=== PATIENT | female | born 1980 | race Caucasian/White ===

== ENCOUNTER 2016-07-05 05:50 | Inpatient (IN) | payer OTHER ==
[2016-07-05] MEDS ORDERED: ELECTROLYTE-148 SOLN 1,000 ML IV ONE ×2 (06:10→10:05)
[2016-07-05] MEDS ORDERED: CITRIC ACID/SODIUM CITRATE 30 ML UNIT-DOSE CUP PO ONE (06:30)
[2016-07-05 06:33] VITALS: BMI 33.2
[2016-07-05] MEDS ORDERED: oxyCODONE HCL 5 MG TABLET PO PRN ×2 (07:54)
[2016-07-05] MEDS ORDERED: METHYLERGONOVINE MALEATE 0.2 MG/1 ML AMP IM PRN (07:54)
[2016-07-05] MEDS ORDERED: morphine SULFATE/Preservative Free 0.5 MG/ML (1cc Syringe) EP ONE (08:00)
[2016-07-05] MEDS ORDERED: IBUPROFEN 600 MG TABLET (FP) PO PRN (08:00)
[2016-07-05] MEDS ORDERED: ONDANSETRON 4 MG/2 ML VIAL IVPB PRN (08:00)
--- NOTE | 2016-07-05 08:02 | HP ---
Past Medical History - Primary Care Physician PCP:: Leslee Patiño - Admission Chief Complaint: Previous Section. Multiparity. Voluntary Sterilization History Source: Patient - Past Medical History ...: 3 ...Para: 2 ...Term: 2 ...: 0 ...Spon : 0 ...Induced : 0 ...Multiple Gestation: 0 ...LMP: 10/14/15 ... Weeks Gestation by Dates: 37.6 ...EDC by Dates: 07/20/16 ...EDC by Sono: 07/11/16 - Past Surgical History Past Surgical History: Yes: Hx Myomectomy: No Hx Transabdominal Cerclage: No - Smoking History Smoking history: Never smoked - Alcohol/Substance Use Hx Alcohol Use: No - Social History Usual Living Arrangement: Yes: With Spouse History of Recent Travel: No Home Medications - Allergies Allergies/Adverse Reactions: Allergies Allergy/AdvReac Type Severity Reaction Status Date / Time No Known Allergies Allergy Verified 07/05/16 06:11 - Home Medications Home Medications: Ambulatory Orders NK [No Known Home Medication] 07/05/16 Review of Systems - Review of Systems Constitutional: reports: No Symptoms Eyes: reports: No Symptoms HENT: reports: No Symptoms Neck: reports: No Symptoms Cardiovascular: reports: No Symptoms Respiratory: reports: No Symptoms Gastrointestinal: reports: No Symptoms Genitourinary: reports: No Symptoms Breasts: reports: No Symptoms Reported Musculoskeletal: reports: No Symptoms Integumentary: reports: No Symptoms Neurological: reports: No Symptoms Endocrine: reports: No Symptoms Hematology/Lymphatic: reports: No Symptoms Psychiatric: reports: No Symptoms Physical Exam - Maternity Vital Signs: Vital Signs Temperature 97.8 F 07/05/16 06:37 Pulse Rate 73 07/05/16 06:37 Respiratory Rate 20 07/05/16 06:37 Blood Pressure 120/65 07/05/16 06:37 O2 Sat by Pulse Oximetry (%) Constitutional: Yes: Well Nourished, No Distress Neck: Yes: WNL, Supple Cardiovascular: Yes: WNL, Regular Rate and Rhythm Lungs: Clear to auscultation Breast(s): Yes: WNL - Abdominal Exam/OB Fundal Height: 40 Number of Fetuses: Single Presentation: Vertex Contractions: No Monitor Mode: External Category: I Accelerations: Non-Uniform Decelerations: None - Vaginal Exam/OB Dilatation (cm): closed Effacement (%): long Amniotic Membrane Status: Intact Presentation: Vertex/Position Station: -1 - Physical Exam Musculoskeletal: Yes: WNL Extremities: Yes: WNL Edema: No Integumentary: Yes: WNL ...Motor Strength: WNL Psychiatric: Yes: WNL, Alert, Oriented Hemorrhage Risk Assessment - Risk Factors Medium Risk Factors: Yes: Prior , uterine surgery,or multiple laparotomies Risk Score: 1 Risk Level: Medium Risk Problem List - Problems (1) Previous delivery affecting , antepartum Code(s): O34.219 - MATERNAL CARE FOR UNSP TYPE SCAR FROM PREVIOUS DEL (2) Sterilization Code(s): Z30.2 - ENCOUNTER FOR STERILIZATION Assessment/Plan IUP at 39 weeks Voluntary Sterilization previous x 2 weeks Plan Repeat CS Bilateral Salpingectomy
--- NOTE | 2016-07-05 09:29 | OP ---
Operative Note - Note: Operative Date: 07/05/16 Pre-Operative Diagnosis: Previous CS. Voluntary Sterilization Operation: Repeat CS Findings: Live female Nuchal Cord x 1 Body cord X 1 Post-Operative Diagnosis: Same as Pre-op Surgeon: Leslee Patiño College Physics Instructor: Anita Watts Anesthesiologist/ACADEMIC VICE PRESIDENT: Stephen Martinez Anesthesia: Spinal Estimated Blood Loss (mls): 700 Operative Report Dictated: Yes
[2016-07-05 09:40] LABS: ARTERIAL BLD GAS O2 SATURATION 36.8 % (90-98.9); ARTERIAL BLOOD GAS BASE EXCESS -3.6 meq/l (-2-2); ARTERIAL BLOOD GAS HCO3 22.7 meq/L (22-26)
--- NOTE | 2016-07-05 09:40 | OP ---
DATE OF OPERATION: 07/05/2016 PREOPERATIVE DIAGNOSIS: Previous section, voluntary sterilization. OPERATION: Repeat section and bilateral salpingectomy. POSTOPERATIVE DIAGNOSIS: Previous section, voluntary sterilization, live female infant nuchal cord x1, body cord x1. SURGEON: Leslee Patiño MD KILN REPAIRER: LIMA Ely ANESTHESIA: Spinal. ANESTHESIOLOGIST: Stephen Martinez MD ESTIMATED BLOOD LOSS: 700 mL. WOUND CLASSIFICATION: Clean, contaminated. DESCRIPTION OF PROCEDURE: The patient was taken to the operating room and placed in supine position, prepped and draped in usual sterile fashion. Time-out was called in accordance with hospital regulation. Scalpel was then used to make a Pfannenstiel skin incision through the patient's previous scar. Cautery was then used to go through layers of the abdominal wall to the level of the fascia. The fascia was cut in the midline, and the fascia was then opened in a smiling fashion. Kochers were then used to bluntly and sharply dissect the rectus muscles off the fascia and muscles split in the midline. Peritoneal cavity was then entered and carried up and down where a bladder retractor was then placed. Vesicouterine reflection was then entered. The bladder was bluntly dissected out of the operative field. Scalpel was then used to make a low transverse uterine incision. Incision was carried upward using bandage scissors. A live female with light meconium was noted and delivered in OT position. Shoulders were delivered without difficulty. Nuchal cord x1 and body cord was reduced. Cord was clamped and cut. Cord pH sampling was sent. Cord blood obtained. obtained. The infant was handed to the nurse. Placenta was manually extracted from the uterus. Uterus was exteriorized and cleaned with clean laparotomy pads. A massive band adhesion was then seen. LigaSure was then used to coagulate and cut the band. Uterus was then cleaned with clean laparotomy pads and uterine incision then closed using 0 Biosyn suture first layer continuous and locking, second layer imbricating the first layer. Hemostasis achieved. Tubes were bilaterally grasped with Babcocks, and LigaSure was used to coagulate and cut the tubes bilaterally away from the uterus. Hemostasis was achieved. Sjvawy-[id number] sutures were then used to stop the bleeding on the fundus. Interceed was placed over the fundus. Uterus interiorized. Abdominal cavity cleaned with clean laparotomy pads. Peritoneum closed using 0 Biosyn suture. Fascia was then closed using 0 Vicryl suture in 2 parts. Then 0 Biosyn was then used on the subcutaneous. The skin was then closed using 4-0 Biosyn in subcuticular fashion. The wound was washed and dressed. The patient tolerated the procedure well and was taken to the recovery room in stable condition. Estimated blood loss was 700 mL. LESLEE PATIÑO M.D. [id number]
[2016-07-05 09:45] LABS: LPM/O2% 21%; PT. ON O2? NO; TYPE OF O2 ROOM AIR
[2016-07-05 09:46] LABS: ARTERIAL BLOOD GAS PO2 21.7 mmHg (80-100); VENOUS PH 7.35 (7.32-7.42)
[2016-07-05 09:47] LABS: VENOUS BLOOD GAS HCO3 23.1 meq/L (19-25)
[2016-07-05] MEDS ORDERED: IBUPROFEN 800 MG/8 ML IJ IVPB PRN (10:04)
[2016-07-06] MEDS: IBUPROFEN 600 MG TABLET (FP) PO PRN ×2 (04:35→13:08)
[2016-07-06] MEDS: SIMETHICONE 80 MG TAB.CHEW (FP) PO PRN ×2 (04:35→13:08)
[2016-07-06] MEDS: ACETAMINOPHEN 325 MG TABLET (FP) PO PRN ×2 (04:36→13:07)
[2016-07-06] MEDS ORDERED: BISACODYL 10 MG SUPP.RECT RC PRN (07:54)
--- NOTE | 2016-07-06 07:57 | PN ---
Progress Note (short form) - Note Progress Note: Post op day#1.S/P C section under spinal with duramorph uneventful.Patient stable and has little pain for which she is on medication.No any anesthesia related problem.Patient DC from the anesthesia care.
[2016-07-06 08:37] LABS: BASOPHIL 0.1 % (0-2.0); MCH 29.2 pg (25.7-33.7); MCHC 33.1 g/dl (32.0-36.0); MEAN CELL VOLUME 88.2 fl (80-96); MEAN PLT VOLUME 8.4 fl (7.5-11.1); NEUTROPHILS 86.2 % (42.8-82.8); PLATELET COUNT 219 K/MM3 (134-434); RDW 13.3 % (11.6-15.6)
--- NOTE | 2016-07-06 12:28 | SURG ---
Surgery Polisher And Buffer Note Polisher And Buffer: Anita Watts PA-C Date of Service: 07/05/16 Diagnosis: Previous CS Procedure: Repeat CS I was present for the entirety of the operative procedure. For further detail, please refer to operative report. Visit type - Case Type Case Type: Scheduled Admission
[2016-07-06] MEDS: D5W-LR W/ 20 UNITS OXYTOCIN 1,000 ML IV SCH (13:11)
--- NOTE | 2016-07-06 20:17 | PN ---
Post Progress Note - Subjective Subjective: 36 yo Para 3 status post , seen and evaluated. Doing well. Post Day: 1 Type of Delivery: Repeat C/S Vital Signs: Vital Signs Temperature 98.2 F 07/06/16 10:00 Pulse Rate 80 07/06/16 10:00 Respiratory Rate 20 07/06/16 10:00 Blood Pressure 114/70 07/06/16 10:00 O2 Sat by Pulse Oximetry (%) 100 07/05/16 10:30 Breast Exam: Yes: Soft Uterus: Yes: Fundus Firm Incision: Yes: Dressing dry and intact Abdomen/GI: Yes: Abdomen soft, Tolerating PO Lochia: Yes: Rubra Lochia, amount: Small Extremities: Yes: Calves non-tender Perineum: Yes: Intact - Labs Labs: CBC WBC 14.0 K/mm3 (4.0-10.0) H D 07/06/16 08:00 RBC 3.57 M/mm3 (3.60-5.2) L 07/06/16 08:00 Hgb 10.4 GM/dL (10.7-15.3) L 07/06/16 08:00 Hct 31.5 % (32.4-45.2) L 07/06/16 08:00 MCV 88.2 fl (80-96) 07/06/16 08:00 MCHC 33.1 g/dl (32.0-36.0) 07/06/16 08:00 RDW 13.3 % (11.6-15.6) 07/06/16 08:00 Plt Count 219 K/MM3 (134-434) 07/06/16 08:00 MPV 8.4 fl (7.5-11.1) 07/06/16 08:00 Neutrophils % 86.2 % (42.8-82.8) H 07/06/16 08:00 Lymphocytes % 7.3 % (8-40) L D 07/06/16 08:00 Monocytes % 6.4 % (3.8-10.2) 07/06/16 08:00 Eosinophils % 0.0 % (0-4.5) D 07/06/16 08:00 Basophils % 0.1 % (0-2.0) 07/06/16 08:00 Problem List - Problems (1) Status post repeat low transverse section Code(s): Z98.891 - HISTORY OF UTERINE SCAR FROM PREVIOUS SURGERY Assessment/Plan Status post repeat Ambulation Analgesia PRN pain Continue routine Post op care
[2016-07-07] MEDS: SIMETHICONE 80 MG TAB.CHEW (FP) PO PRN ×2 (07:36→11:46)
[2016-07-07] MEDS: IBUPROFEN 600 MG TABLET (FP) PO PRN (11:46)
[2016-07-07] MEDS: ACETAMINOPHEN 325 MG TABLET (FP) PO PRN (11:47)
[2016-07-08] MEDS: ACETAMINOPHEN 325 MG TABLET (FP) PO PRN (07:22)
[2016-07-08 08:51] LABS: BASOPHIL 0.3 % (0-2.0); EOSINOPHIL 0.8 % (0-4.5); MCH 29.3 pg (25.7-33.7); MCHC 33.4 g/dl (32.0-36.0); MEAN CELL VOLUME 87.8 fl (80-96); MEAN PLT VOLUME 8.3 fl (7.5-11.1); NEUTROPHILS 79.8 % (42.8-82.8); PLATELET COUNT 266 K/MM3 (134-434); RDW 13.7 % (11.6-15.6); WHITE BLOOD COUNT 11.3 K/mm3 (4.0-10.0)
[2016-07-08 09:35] VITALS: BP 110/67; PULSE 84; TEMP 98.4
[2016-07-08] MEDS: D5W-LR W/ 20 UNITS OXYTOCIN 1,000 ML IV SCH (09:53)
--- NOTE | 2016-07-08 10:38 | PN ---
Progress Note (SOAP) - Subjective Chief Complaint: Pt doing well desires to go home - Current Medications Current Medications: Active Medications Acetaminophen (Tylenol -) 650 mg PO Q4H PRN PRN Reason: FEVER OR PAIN Last Admin: 07/08/16 07:22 Dose: 650 mg Bisacodyl (Dulcolax Suppository -) 10 mg RC PRN PRN PRN Reason: CONSTIPATION Last Admin: 07/08/16 07:22 Dose: 10 mg Diphenhydramine HCl (Benadryl Injection -) 25 mg IVPUSH Q4H PRN PRN Reason: Pruritis Dextrose/Lactated Ringer's (Pitocin 20 Units In D5-Lr -) 1,000 mls @ 125 mls/ hr IV ASDIR ROGELIO Last Admin: 07/08/16 09:53 Dose: Not Given Ibuprofen (Motrin -) 600 mg PO Q4H PRN PRN Reason: PAIN Last Admin: 07/08/16 07:23 Dose: 600 mg Ibuprofen (Caldolor Injection -) 600 mg IVPB Q8H PRN PRN Reason: FEVER Methylergonovine Maleate (Methergine Injection -) 0.2 mg IM Q4H PRN PRN Reason: Excessive Bleeding (L&D) Simethicone (Mylicon -) 80 mg PO Q4H PRN PRN Reason: GAS Last Admin: 07/07/16 11:46 Dose: 80 mg - Objective Vital Signs: Vital Signs Temperature 98.4 F 07/08/16 09:34 Pulse Rate 84 07/08/16 09:34 Respiratory Rate 18 07/08/16 09:34 Blood Pressure 110/67 07/08/16 09:34 O2 Sat by Pulse Oximetry (%) 100 07/05/16 10:30 Constitutional: Yes: Well Nourished, No Distress ....Post : Yes: Uterus firm, Uterus non-tender Breast(s): Yes: WNL Musculoskeletal: Yes: WNL Extremities: Yes: WNL Edema: No Wound/Incision: Yes: Clean/Dry, Well Approximated Neurological: Yes: WNL, Alert, Oriented Labs Lab Results: CBC, BMP 07/08/16 08:15 Problem List - Problems (1) Previous delivery affecting , antepartum Code(s): O34.219 - MATERNAL CARE FOR UNSP TYPE SCAR FROM PREVIOUS DEL (2) Sterilization Code(s): Z30.2 - ENCOUNTER FOR STERILIZATION Assessment/Plan Voluntary Sterilization previous x3 POD3 doing well Plan DC home
--- NOTE | 2016-07-08 10:38 | PN ---
Progress Note (SOAP) - Subjective Chief Complaint: Pt doing well - Current Medications Current Medications: Active Medications Acetaminophen (Tylenol -) 650 mg PO Q4H PRN PRN Reason: FEVER OR PAIN Last Admin: 07/08/16 07:22 Dose: 650 mg Bisacodyl (Dulcolax Suppository -) 10 mg RC PRN PRN PRN Reason: CONSTIPATION Last Admin: 07/08/16 07:22 Dose: 10 mg Diphenhydramine HCl (Benadryl Injection -) 25 mg IVPUSH Q4H PRN PRN Reason: Pruritis Dextrose/Lactated Ringer's (Pitocin 20 Units In D5-Lr -) 1,000 mls @ 125 mls/ hr IV ASDIR ROGELIO Last Admin: 07/08/16 09:53 Dose: Not Given Ibuprofen (Motrin -) 600 mg PO Q4H PRN PRN Reason: PAIN Last Admin: 07/08/16 07:23 Dose: 600 mg Ibuprofen (Caldolor Injection -) 600 mg IVPB Q8H PRN PRN Reason: FEVER Methylergonovine Maleate (Methergine Injection -) 0.2 mg IM Q4H PRN PRN Reason: Excessive Bleeding (L&D) Simethicone (Mylicon -) 80 mg PO Q4H PRN PRN Reason: GAS Last Admin: 07/07/16 11:46 Dose: 80 mg - Objective Vital Signs: Vital Signs Temperature 98.4 F 07/08/16 09:34 Pulse Rate 84 07/08/16 09:34 Respiratory Rate 18 07/08/16 09:34 Blood Pressure 110/67 07/08/16 09:34 O2 Sat by Pulse Oximetry (%) 100 07/05/16 10:30 Constitutional: Yes: Well Nourished, No Distress Cardiovascular: Yes: WNL Respiratory: Yes: WNL Gastrointestinal: Yes: WNL, Soft Breast(s): Yes: WNL Musculoskeletal: Yes: WNL, Muscle Weakness Edema: No Wound/Incision: Yes: Clean/Dry, Well Approximated Neurological: Yes: WNL, Alert, Oriented Labs Lab Results: CBC, BMP 07/08/16 08:15 Problem List - Problems (1) Previous delivery affecting , antepartum Code(s): O34.219 - MATERNAL CARE FOR UNSP TYPE SCAR FROM PREVIOUS DEL (2) Sterilization Code(s): Z30.2 - ENCOUNTER FOR STERILIZATION Assessment/Plan Voluntary Sterilization previous x3 POD2 doing well Plan DC home in am
--- NOTE | 2016-07-09 15:19 | DS ---
Physical Exam-ASSOCIATE STORE MANAGER Vital Signs: Vital Signs Temperature 98.4 F 07/08/16 09:34 Pulse Rate 84 07/08/16 09:34 Respiratory Rate 18 07/08/16 09:34 Blood Pressure 110/67 07/08/16 09:34 O2 Sat by Pulse Oximetry (%) 100 07/05/16 10:30 Constitutional: Yes: Well Nourished, No Distress Gastrointestinal: Yes: WNL, Normal Bowel Sounds, Soft Breast(s): Yes: WNL Musculoskeletal: Yes: WNL Extremities: Yes: WNL Edema: No Wound/Incision: Yes: Clean/Dry, Well Approximated Neurological: Yes: WNL, Alert, Oriented Labs: CBC, BMP 07/08/16 08:15 Delivery - Delivery Section: Repeat Type of Anesthesia: Spinal Episiotomy/Laceration: None EBL (cc): 800 Delivery, Single - Stages of Labor Date of Delivery: 07/05/16 Time of Delivery: 08:31 Time Placenta Delivered: 08:32 - Condition of Infant Assistant Associate Professor/Livestock Farmworker Present: No Gender: Female Weight: 7 lb 10 oz Position: OT Total Hours ROM (Hrs/Mins): 2M - 1 Minute Total Score: 9 5 Minutes Total Score: 9 - Feeding Plan Initial Plan: Exclusive throughout hospitalization Discharge Summary Reason For Visit: REPEAT C SECTION Procedures: Principal: Repeat Section. Blateral salpingectomy Hospital Course: unremarkable Condition: Good - Instructions Diet, Activity, Other Instructions: Physical activity Resume your normal everyday activity as tolerated no heavy lifting or exercise until seen by your surgeon. You may walk unlimited shae of and climb stairs. You may resume driving the car when you feel safe and comfortable behind the wheel. No sexual activity as instructed. Wound care If you have a bandage, leave it on, and keep dry for 48-72 hours. After that time discard the outer bandage. If they are tapes on the skin under the out of bandage leave them in place. They will peel off in the next 7 to 10 days. Do Not Peel them off. You may shower the day after surgery. If there are tapes present on the skin, you may shower over them. Diet There are no dietary restrictions. Eat healthy, high-fiber foods. Drink 6 to 8 glasses of liquid each day. This will assist in keeping your bowels are regular. Pain management You may take Tylenol or acetaminophen or Ibuprofen (for example, Motrin, Advil etc.) from my pain prescription medication is ordered should be taken as prescribed for moderate to severe pain. Call MD for any of the following: Severe pain not relieved by medication Fever of 101 or higher Excessive bleeding or drainage on dressing Inability to urinate Disposition: HOME - Home Medications Comprehensive Discharge Medication List: Ambulatory Orders Ibuprofen [Motrin -] 600 mg PO QID PRN #28 tablet 07/08/16
--- NOTE | 2016-07-14 11:18 | PATH ---
Surgical Pathology Report Patient Name: LEXA DE LOS SANTOS [facility]. Rec. #: [id number] /Age/Gender: 1980 (Age: 36) / F Account: [id number] Location: [facility] OBS/SENIOR LIVING ADVISOR Taken: 07/05/2016 Received: 07/06/2016 Reported: 07/08/2016 Physicians: Leslee Patiño M.D. Specimen(s) Received A: PLACENTA B: PORTION RT. FALLOPIAN TUBE C: PORTION LT. FALLOPIAN TUBE Clinical History 39 weeks IUP, previous c/section x2 Scheduled repeat c/section, voluntary sterilization request Final Diagnosis A. PLACENTA, DELIVERY: FOCALLY DISRUPTED, SMALL (<400 GM), THIRD TRIMESTER PLACENTA WITH MILD INCREASE IN PREVILLOUS, PERIVILLOUS, AND PRECHORIONIC FIBRIN DEPOSITION, FOCAL CALCIFICATIONS, THREE VESSEL UMBILICAL CORD, AND PLACENTAL MEMBRANES WITH FOCAL AMNION HYPERPLASIA. B. PORTION OF FALLOPIAN TUBE, RIGHT, LIGATION: FIMBRIATED PORTION OF FALLOPIAN TUBE WITH COMPLETE CROSS SECTION. C. PORTION OF FALLOPIAN TUBE, LEFT, LIGATION: FIMBRIATED PORTION OF FALLOPIAN TUBE WITH COMPLETE CROSS SECTION. Electronically Signed Nathan Bates M.D. Gross Description A. The specimen is received fresh, labeled "placenta" and is a 333 gram, 19.0 x 14.0 x 1.3 cm placenta with attached membranes and umbilical cord. The attached membranes are peter, translucent with focal opacities and insert marginally. The umbilical cord measures 9 cm in length and averages 1 cm.in diameter. The cord inserts eccentrically, 4 cm to the nearest margin. No true knots or strictures are identified. Cut surface of the umbilical cord reveals 3 vessels. The surface is butler-blue with fibrin deposition and appropriate caliber vessels. The maternal surface is red-brown with focal defects. Sectioning reveals red-brown, spongy parenchyma. No focal lesions are identified. Beauty Operator Apprentice sections are submitted in three cassettes as follows: 1- membrane rolls and umbilical cord; 2-3- full thickness sections of placenta. B. Received in formalin labeled "right portion of tube" is a 7 cm in length fimbriated portion of fallopian tube. The outer surface is morfin purple and smooth. Sectioning reveals an unremarkable lumen. Beauty Operator Apprentice sections are submitted in 2 cassettes as follows: 1-fimbria; 2-cross sections of fallopian tube. C. Received in formalin labeled "left portion of tube" is a 6 cm in length fimbriated portion of fallopian tube. The outer surface is morfin purple and smooth. Sectioning reveals an unremarkable lumen. Beauty Operator Apprentice sections are submitted in 2 cassettes as follows: 1-fimbria; 2-cross sections of fallopian tube. 07/07/201607/07/2016
== END 2016-07-08 13:00 | disposition home or self-care (01) | DRG 766 ==
LOC: J3WN 05:50 → JLDR 05:50 → J3W 10:36
PROVIDERS: ADMIT Obstetrics & Gynecology; ATTEND Obstetrics & Gynecology
PROC: 10D00Z1 Extraction of Products of Conception, Low, Open Approach (ICD-10-PCS; principal; 2016-07-05)
PROC: 0UT70ZZ Resection of Bilateral Fallopian Tubes, Open Approach (ICD-10-PCS; 2016-07-05)
DX: O34.211 Maternal care for low transverse scar from previous cesarean delivery (principal); O69.81X0 Labor and delivery complicated by cord around neck, without compression, not applicable or unspecified; Z3A.39 39 weeks gestation of pregnancy; Z37.0 Single live birth; Z30.2 Encounter for sterilization
CPT/HCPCS: 36415; 36600; 82803; 85025; 88302-TC; 88307-TC

== ENCOUNTER 2018-12-04 09:44 | Day surgery (SDC) | payer OTHER ==
[2018-11-30 16:57] VITALS: BMI 31.6
--- NOTE | 2018-12-04 03:25 | HP ---
History & Physical Update - History History: No Change - Physical Physical: No Change - Assessment Assessment: No Change - Plan Plan: No Change (No change in HP)
[~2018-12-04 09:44] MED LIST: ACETAMINOPHEN 325 MG TABLET (FP) PO PRN; IBUPROFEN 400 MG TABLET (FP) PO PRN
[2018-12-04] MEDS ORDERED: MIDAZOLAM HCL 2 MG/2 ML SINGLE DOSE VIAL ONE (11:07)
[2018-12-04] MEDS ORDERED: ROCURONIUM BROMIDE 50 MG/5 ML SYRINGE ONE (11:32)
--- NOTE | 2018-12-04 12:53 | OP ---
Operative Note - Note: Operative Date: 12/04/18 Pre-Operative Diagnosis: Endometrial polyp. menorrhagia Operation: Hysterscopic myomectomy. Suction DC Post-Operative Diagnosis: Same as Pre-op Surgeon: Leslee Patiño Anesthesia: General Estimated Blood Loss (mls): 30 Operative Report Dictated: Yes
[2018-12-04 13:29] VITALS: TEMP 97.5
[2018-12-04] MEDS ORDERED: ONDANSETRON 4 MG/2 ML VIAL IVPUSH PRN (14:09)
[2018-12-04] MEDS ORDERED: oxyCODONE HCL 5 MG TABLET PO PRN (14:09)
[2018-12-04] MEDS ORDERED: LACTATED RINGERS SOLUTION 1,000 ML IV SCH (14:15)
[2018-12-04 14:45] VITALS: BP 122/69; PULSE 72
--- NOTE | 2018-12-06 14:58 | PATH ---
Surgical Pathology Report Patient Name: LEXA DE LOS SANTOS [facility]. Rec. #: [id number] /Age/Gender: 1980 (Age: 38) / F Account: [id number] Location: [facility] SURGICAL Taken: 12/03/2018 Received: 12/04/2018 Reported: 12/06/2018 Physicians: Leslee Patiño M.D. Specimen(s) Received ENDOMETRIAL CURETTINGS Clinical History Endometrial polyp; hysteroscopic myomectomy Final Diagnosis ENDOMETRIAL CURETTINGS: PREDOMINANTLY FRAGMENTS OF SECRETORY TYPE ENDOMETRIUM. FEW FRAGMENTS OF ENDOMETRIAL POLYP. Electronically Signed Gabrielle Paige M.D. Gross Description Received in formalin, labeled "endometrial curettings" are multiple peter soft tissue measuring 4 x 4 x 0.4 cm in aggregate. The specimens are submitted in toto in 2 cassettes. DAVID/12/04/2018 charley/12/04/2018
--- NOTE | 2018-12-11 15:52 | OP ---
DATE OF OPERATION: 12/04/2018 PREOPERATIVE DIAGNOSIS: Endometrial polyps. OPERATION: Hysteroscopic myomectomy, suction dilation and curettage. POSTOPERATIVE DIAGNOSIS: Menorrhagia, endometrial polyps, submucosal myoma. SURGEON: Leslee Patiño MD ANESTHESIA: General. DESCRIPTION OF PROCEDURE: Patient was taken to the operating room. Placed in dorsal lithotomy position. Prepped and draped in the usual sterile fashion. Time-out was performed in accordance with hospital regulation. Speculum was placed in the vagina. Anterior lip of the cervix was grasped with a single-tooth tenaculum. Cervix was then dilated to accommodate the operative hysteroscope. Operative hysteroscope was then inserted, and endometrial polyps were noted. Cautery and cutting of the endometrial polyps was then performed. Polyps were submitted to Pathology. Suction dilation and curettage was then done, and specimen was then to pathology. All instruments then removed. Estimated blood loss was 10 mL. Patient tolerated the procedure well and was taken to the recovery room in stable condition. LESLEE PATIÑO M.D. [id number]
== END 2018-12-04 14:54 | disposition home or self-care (01) ==
LOC: JASU-SURG 09:44
PROVIDERS: ATTEND Obstetrics & Gynecology
PROC: 0UB98ZX Excision of Uterus, Via Natural or Artificial Opening Endoscopic, Diagnostic (ICD-10-PCS; principal; 2018-12-04 11:00)
PROC: 0UDB8ZX Extraction of Endometrium, Via Natural or Artificial Opening Endoscopic, Diagnostic (ICD-10-PCS; 2018-12-04 11:00)
DX: N84.0 Polyp of corpus uteri (principal); N92.0 Excessive and frequent menstruation with regular cycle
CPT/HCPCS: 88305-TC; 94760

== ENCOUNTER 2024-03-08 04:05 | Day surgery (SDC) | payer OTHER ==
[2024-03-06 12:42] VITALS: BMI 32.4
[2024-03-08] MEDS ORDERED: IBUPROFEN 400 MG TABLET (FP) PO PRN (06:48)
[2024-03-08] MEDS ORDERED: ACETAMINOPHEN 325 MG TABLET (FP) PO PRN (06:48)
[2024-03-08] MEDS ORDERED: PROPOFOL 20 ML ONE (08:07)
[2024-03-08] MEDS ORDERED: MIDAZOLAM HCL 2 MG/2 ML SINGLE DOSE VIAL ONE (08:08)
[2024-03-08] MEDS ORDERED: ONDANSETRON 4 MG/2 ML VIAL IVPUSH PRN (08:25)
[2024-03-08] MEDS ORDERED: oxyCODONE HCL 5 MG TABLET PO PRN (08:25)
[2024-03-08] MEDS ORDERED: LACTATED RINGERS SOLUTION 1,000 ML IV SCH (08:30)
[2024-03-08] MEDS ORDERED: DEXAMETHASONE SOD PHOSPHATE 4 MG/1 ML VIAL ONE (08:55)
[2024-03-08] MEDS ORDERED: KETOROLAC TROMETHAMINE 30 MG/1 ML VIAL ONE (08:55)
[2024-03-08 12:33] VITALS: BP 127/64; PULSE 64; RESP 16; TEMP 97.8
== END 2024-03-08 11:15 | disposition home or self-care (01) ==
LOC: JASU-SURG 04:05
PROVIDERS: ATTEND Obstetrics & Gynecology
PROC: 0UDB8ZX Extraction of Endometrium, Via Natural or Artificial Opening Endoscopic, Diagnostic (ICD-10-PCS; principal; 2024-03-08 08:30)
DX: N84.1 Polyp of cervix uteri (principal); D25.0 Submucous leiomyoma of uterus; N85.6 Intrauterine synechiae
CPT/HCPCS: 81025; 88305-TC; 94760